=== PATIENT | female | born 1990 | race African-American/Black ===

== ENCOUNTER 2017-08-13 11:32 | Inpatient (IN) | payer OTHER ==
[2017-08-13 13:52] VITALS: BMI 29.5
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
[2017-08-13] MEDS ORDERED: MAG HYDROX/AL HYDROX/SIMETH 30 ML UNIT-DOSE CUP PO PRN (14:34)
[2017-08-13] MEDS ORDERED: MAGNESIUM CITRATE 300 ML BOTTLE PO PRN (14:34)
[2017-08-13] MEDS ORDERED: MENTHOL/PHENOL 1 EACH UD MM PRN (14:34)
[2017-08-13] MEDS ORDERED: P-EPHED 60MG/TRIPROLIDI 2.5MG TABLET PO PRN (14:34)
[2017-08-13] MEDS ORDERED: guaiFENesin/D-METHORPHAN HB 10 ML UNIT-DOSE CUPS PO PRN (14:34)
[2017-08-13] MEDS ORDERED: IBUPROFEN 400 MG TABLET (FP) PO PRN (14:34)
[2017-08-13] MEDS ORDERED: ACETAMINOPHEN 325 MG TABLET (FP) PO PRN (14:34)
[2017-08-13] MEDS ORDERED: LOPERAMIDE HCL 2 MG CAPSULE PO PRN (14:34)
[2017-08-13 16:50] LABS: HEMOGLOBIN 13.2 GM/dL (10.7-15.3); MCH 31.7 pg (25.7-33.7); MCHC 33.7 g/dl (32.0-36.0); MEAN CELL VOLUME 93.9 fl (80-96); MEAN PLT VOLUME 7.9 fl (7.5-11.1); PLATELET COUNT 365 K/MM3 (134-434); RBC 4.15 M/mm3 (3.60-5.2); RDW 13.5 % (11.6-15.6); WHITE BLOOD COUNT 8.7 K/mm3 (4.0-10.0)
[2017-08-13 17:47] LABS: ANION GAP 9 (8-16); CALCIUM 8.6 mg/dL (8.5-10.1); CHLORIDE 103 mmol/L (98-107); CO2 26 mmol/L (21-32); GLUCOSE,RANDOM 66 mg/dL (74-106); POTASSIUM 4.1 mmol/L (3.5-5.1); SODIUM 138 mmol/L (136-145)
[2017-08-13 18:43] LABS: ALK PHOS 50 U/L (45-117); BILIRUBIN,TOTAL 0.3 mg/dL (0.2-1.0); CREATININE 0.7 mg/dL (0.55-1.02); SGOT/AST 47 U/L (15-37); SGPT/ALT 44 U/L (12-78); TOT PROT 7.7 g/dl (6.4-8.2)
[2017-08-13 20:06] LABS: BLOOD UREA NITROGEN 10 mg/dL (7-18)
[2017-08-13] MEDS ORDERED: TUBERCULIN PPD 5 TU/0.1ML VIAL ID ONE (20:57)
[2017-08-13] MEDS: THIAMINE HCL 100 MG TABLET (FP) PO SCH (21:34)
[2017-08-13] MEDS: NICOTINE 14 MG/24 HOURS TOPICAL PATCH TD SCH (21:36)
[2017-08-13 23:23] LABS: URINE APPEARANCE TURBID; URINE BILIRUBIN NEGATIVE (NEGATIVE); URINE BLOOD 1+ (NEGATIVE); URINE COLOR AMBER; URINE GLUCOSE (UA) NEGATIVE (NEGATIVE); URINE KETONE NEGATIVE (NEGATIVE); URINE LEUK ESTERASE TRACE (NEGATIVE); URINE NITRITE POSITIVE (NEGATIVE); URINE PROTEIN NEGATIVE (NEGATIVE); URINE UROBILINOGEN NEGATIVE mg/dL (0.2-1.0)
[2017-08-13 23:34] LABS: EPI CELLS FEW /HPF (FEW); URINE BACTERIA FEW /hpf (NONE SEEN); URINE MUCUS MODERATE
--- NOTE | 2017-08-14 09:51 | EKG ---
Test Reason : Blood Pressure : / mmHG Vent. Rate : 067 BPM Atrial Rate : 067 BPM P-R Int : 166 ms QRS Dur : 082 ms QT Int : 384 ms P-R-T Axes : 066 074 051 degrees QTc Int : 405 ms NORMAL SINUS RHYTHM T WAVE ABNORMALITY, CONSIDER ANTERIOR ISCHEMIA ABNORMAL ECG WHEN COMPARED WITH ECG OF 22-JUN-2015 15:14, T WAVE INVERSION NOW EVIDENT IN ANTERIOR LEADS Confirmed by HUMBERTO ALANIS, PERNELL ([id number]) on 08/14/2017 9:51:06 AM Referred By: Confirmed By:PERNELL PAUL MD
[2017-08-14] MEDS: PRENATAL VITAMINS W/ FOLIC ACID TABLET (FP) PO SCH (10:19)
[2017-08-14] MEDS: NICOTINE 14 MG/24 HOURS TOPICAL PATCH TD SCH (10:19)
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
[2017-08-14] MEDS: ESCITALOPRAM OXALATE 10 MG TABLET (FP) PO SCH (15:04)
[2017-08-14] MEDS: THIAMINE HCL 100 MG TABLET (FP) PO SCH (21:22)
[2017-08-14] MEDS: QUEtiapine FUMARATE 25 MG TABLET (FP) PO SCH (21:23)
[2017-08-14] MEDS: DIVALPROEX SODIUM 500 MG TABLET E.C. PO SCH (21:24)
[2017-08-15] MEDS: DIVALPROEX SODIUM 500 MG TABLET E.C. PO SCH ×2 (10:02→21:29)
[2017-08-15] MEDS: NICOTINE 14 MG/24 HOURS TOPICAL PATCH TD SCH (10:02)
[2017-08-15] MEDS: ESCITALOPRAM OXALATE 10 MG TABLET (FP) PO SCH (10:02)
[2017-08-15] MEDS: PRENATAL VITAMINS W/ FOLIC ACID TABLET (FP) PO SCH (10:02)
[2017-08-15] MEDS: THIAMINE HCL 100 MG TABLET (FP) PO SCH (21:29)
[2017-08-15] MEDS: QUEtiapine FUMARATE 25 MG TABLET (FP) PO SCH (21:30)
[2017-08-16] MEDS: ESCITALOPRAM OXALATE 10 MG TABLET (FP) PO SCH (10:30)
[2017-08-16] MEDS: DIVALPROEX SODIUM 500 MG TABLET E.C. PO SCH ×2 (10:30→21:30)
[2017-08-16] MEDS: PRENATAL VITAMINS W/ FOLIC ACID TABLET (FP) PO SCH (10:30)
[2017-08-16] MEDS: NICOTINE 14 MG/24 HOURS TOPICAL PATCH TD SCH (10:30)
[2017-08-16] MEDS: hydrOXYzine PAMOATE 50 MG CAPSULE (FP) PO PRN (18:53)
[2017-08-16] MEDS: THIAMINE HCL 100 MG TABLET (FP) PO SCH (21:30)
[2017-08-16] MEDS: QUEtiapine FUMARATE 25 MG TABLET (FP) PO SCH (21:30)
[2017-08-17] MEDS: hydrOXYzine PAMOATE 50 MG CAPSULE (FP) PO PRN ×3 (06:20→19:58)
[2017-08-17] MEDS: PRENATAL VITAMINS W/ FOLIC ACID TABLET (FP) PO SCH (09:51)
[2017-08-17] MEDS: ESCITALOPRAM OXALATE 10 MG TABLET (FP) PO SCH (09:51)
[2017-08-17] MEDS: DIVALPROEX SODIUM 500 MG TABLET E.C. PO SCH ×2 (09:51→21:29)
[2017-08-17] MEDS: NICOTINE 14 MG/24 HOURS TOPICAL PATCH TD SCH (09:51)
[2017-08-17] MEDS: QUEtiapine FUMARATE 25 MG TABLET (FP) PO SCH (21:29)
[2017-08-17] MEDS: THIAMINE HCL 100 MG TABLET (FP) PO SCH (21:29)
[2017-08-18] MEDS: NICOTINE 14 MG/24 HOURS TOPICAL PATCH TD SCH (09:39)
[2017-08-18] MEDS: PRENATAL VITAMINS W/ FOLIC ACID TABLET (FP) PO SCH (09:39)
[2017-08-18] MEDS: ESCITALOPRAM OXALATE 10 MG TABLET (FP) PO SCH (09:39)
[2017-08-18] MEDS: DIVALPROEX SODIUM 500 MG TABLET E.C. PO SCH ×2 (09:39→21:29)
[2017-08-18] MEDS: hydrOXYzine PAMOATE 50 MG CAPSULE (FP) PO PRN ×2 (09:39→17:57)
[2017-08-18] MEDS: MAGNESIUM HYDROX 2400MG/30ML ORAL SUSPENSION 30 ML CUP PO PRN (19:20)
[2017-08-18] MEDS: THIAMINE HCL 100 MG TABLET (FP) PO SCH (21:29)
[2017-08-18] MEDS: QUEtiapine FUMARATE 25 MG TABLET (FP) PO SCH (21:29)
[2017-08-19] MEDS: hydrOXYzine PAMOATE 50 MG CAPSULE (FP) PO PRN ×2 (06:50→21:33)
[2017-08-19] MEDS: ESCITALOPRAM OXALATE 10 MG TABLET (FP) PO SCH (10:24)
[2017-08-19] MEDS: DIVALPROEX SODIUM 500 MG TABLET E.C. PO SCH ×2 (10:24→21:32)
[2017-08-19] MEDS: PRENATAL VITAMINS W/ FOLIC ACID TABLET (FP) PO SCH (10:24)
[2017-08-19] MEDS: NICOTINE 14 MG/24 HOURS TOPICAL PATCH TD SCH (10:24)
[2017-08-19] MEDS: MAGNESIUM HYDROX 2400MG/30ML ORAL SUSPENSION 30 ML CUP PO PRN (14:44)
[2017-08-19] MEDS: THIAMINE HCL 100 MG TABLET (FP) PO SCH (21:32)
[2017-08-19] MEDS: QUEtiapine FUMARATE 25 MG TABLET (FP) PO SCH (21:34)
[2017-08-20] MEDS: NICOTINE 14 MG/24 HOURS TOPICAL PATCH TD SCH (09:17)
[2017-08-20] MEDS: PRENATAL VITAMINS W/ FOLIC ACID TABLET (FP) PO SCH (09:17)
[2017-08-20] MEDS: DIVALPROEX SODIUM 500 MG TABLET E.C. PO SCH ×2 (09:17→21:42)
[2017-08-20] MEDS: ESCITALOPRAM OXALATE 10 MG TABLET (FP) PO SCH (09:17)
[2017-08-20] MEDS: THIAMINE HCL 100 MG TABLET (FP) PO SCH (21:42)
[2017-08-20] MEDS: QUEtiapine FUMARATE 25 MG TABLET (FP) PO SCH (21:43)
[2017-08-20] MEDS: hydrOXYzine PAMOATE 50 MG CAPSULE (FP) PO PRN (22:30)
[2017-08-21] MEDS: NICOTINE 14 MG/24 HOURS TOPICAL PATCH TD SCH (10:08)
[2017-08-21] MEDS: DIVALPROEX SODIUM 500 MG TABLET E.C. PO SCH ×2 (10:09→21:30)
[2017-08-21] MEDS: PRENATAL VITAMINS W/ FOLIC ACID TABLET (FP) PO SCH (10:09)
[2017-08-21] MEDS: ESCITALOPRAM OXALATE 10 MG TABLET (FP) PO SCH (10:09)
--- NOTE | 2017-08-21 16:10 | PN ---
Psychiatric Progress Note Vital Signs: Vital Signs Period Temp Pulse Resp BP Sys/Warner Pulse Ox Last 24 Hr 98.0 F 66 16-18 116/74 Date of Session: 08/21/17 Chief Complaint:: "I'm still having trouble sleeping." HPI: Pt. admitted to [facility] re[facility] for alcohol and marijuana dependence. ROS: Unremarkable Current Medications: Active Medications Generic Name Dose Route Start Last Admin Trade Name Freq PRN Reason Stop Dose Admin Acetaminophen 650 mg 08/13/17 14:34 Tylenol - PO Q4H PRN FEVER Al Hydroxide/Mg Hydroxide 30 ml 08/13/17 14:34 Mylanta Oral Suspension - PO Q6H PRN DYSPEPSIA Divalproex Sodium 500 mg 08/14/17 22:00 08/21/17 10:09 Depakote - PO 500 mg BID BERTHA Administration Escitalopram Oxalate 10 mg 08/14/17 14:15 08/21/17 10:09 Lexapro - PO 10 mg DAILY BERTHA Administration Eucalyptus/Menthol/Phenol/Sorbitol 1 each 08/13/17 14:34 Cepastat Lozenge - MM Q4H PRN SORE THROAT Guaifenesin 10 ml 08/13/17 14:34 Robitussin Dm - PO Q6H PRN COUGH Hydroxyzine Pamoate 50 mg 08/16/17 16:53 08/20/17 22:30 Vistaril - PO 50 mg Q6H PRN Administration ANXIETY Ibuprofen 400 mg 08/13/17 14:34 Motrin - PO Q6H PRN Pain level 4-6 Loperamide HCl 4 mg 08/13/17 14:34 Imodium - PO Q6H PRN DIARRHEA Magnesium Citrate 300 ml 08/13/17 14:34 08/19/17 18:56 Citroma - PO 300 ml Q48H PRN Administration CONSTIPATION Magnesium Hydroxide 30 ml 08/13/17 14:34 08/19/17 14:44 Milk Of Magnesia - PO 30 ml DAILY PRN Administration CONSTIPATION Nicotine 14 mg 08/13/17 14:45 08/21/17 10:08 Nicoderm Patch - TD 14 mg DAILY BERTHA Administration Multivit/Folic Acid/Iron 1 tab 08/14/17 10:00 08/21/17 10:09 Vitamins (Sjr) - PO 1 tab DAILY BERTHA Administration Pseudoephedrine/Triprolidine 1 combo 08/13/17 14:34 Actifed - PO TID PRN NASAL CONGESTION Quetiapine Fumarate 25 mg 08/14/17 22:00 08/20/17 21:43 Seroquel - PO 25 mg HS BERTHA Administration Thiamine HCl 100 mg 08/13/17 22:00 08/20/17 21:42 Vitamin B1 - PO 100 mg HS BERTAH Administration Medication(s) Change(s): Yes. Seroquel to be increased to 50mg qhs. Current Side Effect: No Lab tests ordered: No Lab tests reviewed: Yes Provider note:: [employer] spoke to patient concerning psychiatric follow up. Pt. c/ o difficulty sleeping. Seroquel 25mg to be increased to 50mg qhs. Pt. educated on the benefits and side effects of seroquel. Psychoeducation and sleep hygiene provided. Pt. satisified and receptive to feedback. Verbal consent given. Will continue to monitor patient. Total face to face time:: 25 Mental Status Exam - Mental Status Exam Alert and Oriented to: Time, Place, Person Cognitive Function: Good Patient Appearance: Well Groomed Mood: Hopeful Affect: Mood Congruent Patient Behavior: Appropriate, Cooperative Speech Pattern: Appropriate Voice Loudness: Normal Thought Process: Goal Oriented Thought Disorder: Not Present Hallucinations: Denies Suicidal Ideation: Denies Homicidal Ideation: Denies Insight/Judgement: Poor Sleep: Poorly Appetite: Fair Muscle strength/Tone: Normal Gait/Station: Normal Psychiatric Treatment Plan - Problem List (1) Bipolar II disorder Current Visit: Yes (2) Cannabis dependence, uncomplicated Current Visit: Yes (3) Nicotine dependence Current Visit: Yes Qualifiers: Nicotine product type: cigarettes Substance use status: in withdrawal Qualified Code(s): F17.213 - Nicotine dependence, cigarettes, with withdrawal (4) Alcohol dependence Current Visit: Yes
[2017-08-21] MEDS: THIAMINE HCL 100 MG TABLET (FP) PO SCH (21:30)
[2017-08-21] MEDS: hydrOXYzine PAMOATE 50 MG CAPSULE (FP) PO PRN (21:30)
[2017-08-21] MEDS: QUEtiapine FUMARATE 50 MG TABLET PO SCH (21:31)
[2017-08-22] MEDS: DIVALPROEX SODIUM 500 MG TABLET E.C. PO SCH ×2 (10:13→21:27)
[2017-08-22] MEDS: PRENATAL VITAMINS W/ FOLIC ACID TABLET (FP) PO SCH (10:14)
[2017-08-22] MEDS: NICOTINE 14 MG/24 HOURS TOPICAL PATCH TD SCH (10:14)
[2017-08-22] MEDS: ESCITALOPRAM OXALATE 10 MG TABLET (FP) PO SCH (10:14)
[2017-08-22] MEDS: hydrOXYzine PAMOATE 50 MG CAPSULE (FP) PO PRN ×2 (15:35→21:27)
[2017-08-22] MEDS: QUEtiapine FUMARATE 50 MG TABLET PO SCH (21:27)
[2017-08-22] MEDS: THIAMINE HCL 100 MG TABLET (FP) PO SCH (21:27)
[2017-08-23] MEDS: PRENATAL VITAMINS W/ FOLIC ACID TABLET (FP) PO SCH (09:58)
[2017-08-23] MEDS: ESCITALOPRAM OXALATE 10 MG TABLET (FP) PO SCH (09:58)
[2017-08-23] MEDS: DIVALPROEX SODIUM 500 MG TABLET E.C. PO SCH ×2 (09:58→21:44)
[2017-08-23] MEDS: NICOTINE 14 MG/24 HOURS TOPICAL PATCH TD SCH (09:59)
[2017-08-23] MEDS: THIAMINE HCL 100 MG TABLET (FP) PO SCH (21:44)
[2017-08-23] MEDS: QUEtiapine FUMARATE 50 MG TABLET PO SCH (21:44)
[2017-08-24] MEDS: ESCITALOPRAM OXALATE 10 MG TABLET (FP) PO SCH (10:08)
[2017-08-24] MEDS: DIVALPROEX SODIUM 500 MG TABLET E.C. PO SCH ×2 (10:08→21:34)
[2017-08-24] MEDS: PRENATAL VITAMINS W/ FOLIC ACID TABLET (FP) PO SCH (10:08)
[2017-08-24] MEDS: NICOTINE 14 MG/24 HOURS TOPICAL PATCH TD SCH (10:08)
[2017-08-24 16:25] LABS: URINE APPEARANCE SLCLOUDY; URINE BILIRUBIN NEGATIVE (NEGATIVE); URINE BLOOD NEGATIVE (NEGATIVE); URINE COLOR YELLOW; URINE GLUCOSE (UA) NEGATIVE (NEGATIVE); URINE KETONE TRACE (NEGATIVE); URINE LEUK ESTERASE NEGATIVE (NEGATIVE); URINE NITRITE NEGATIVE (NEGATIVE); URINE PROTEIN NEGATIVE (NEGATIVE); URINE UROBILINOGEN NEGATIVE mg/dL (0.2-1.0)
[2017-08-24] MEDS: THIAMINE HCL 100 MG TABLET (FP) PO SCH (21:34)
[2017-08-24] MEDS: QUEtiapine FUMARATE 50 MG TABLET PO SCH (21:34)
[2017-08-24] MEDS: hydrOXYzine PAMOATE 50 MG CAPSULE (FP) PO PRN (21:34)
[2017-08-25] MEDS: hydrOXYzine PAMOATE 50 MG CAPSULE (FP) PO PRN ×2 (06:44→18:26)
[2017-08-25] MEDS: PRENATAL VITAMINS W/ FOLIC ACID TABLET (FP) PO SCH (10:10)
[2017-08-25] MEDS: DIVALPROEX SODIUM 500 MG TABLET E.C. PO SCH ×2 (10:10→21:33)
[2017-08-25] MEDS: NICOTINE 14 MG/24 HOURS TOPICAL PATCH TD SCH (10:10)
[2017-08-25] MEDS: ESCITALOPRAM OXALATE 10 MG TABLET (FP) PO SCH (10:10)
[2017-08-25] MEDS: QUEtiapine FUMARATE 50 MG TABLET PO SCH (21:33)
[2017-08-25] MEDS: THIAMINE HCL 100 MG TABLET (FP) PO SCH (21:33)
[2017-08-26] MEDS: DIVALPROEX SODIUM 500 MG TABLET E.C. PO SCH ×2 (10:02→21:33)
[2017-08-26] MEDS: NICOTINE 14 MG/24 HOURS TOPICAL PATCH TD SCH (10:02)
[2017-08-26] MEDS: PRENATAL VITAMINS W/ FOLIC ACID TABLET (FP) PO SCH (10:02)
[2017-08-26] MEDS: ESCITALOPRAM OXALATE 10 MG TABLET (FP) PO SCH (10:02)
[2017-08-26] MEDS: THIAMINE HCL 100 MG TABLET (FP) PO SCH (21:33)
[2017-08-26] MEDS: QUEtiapine FUMARATE 50 MG TABLET PO SCH (21:34)
[2017-08-26] MEDS: hydrOXYzine PAMOATE 50 MG CAPSULE (FP) PO PRN (23:03)
[2017-08-27 06:59] VITALS: BP 102/64; PULSE 67; TEMP 98.3
[2017-08-27] MEDS: PRENATAL VITAMINS W/ FOLIC ACID TABLET (FP) PO SCH (09:27)
[2017-08-27] MEDS: DIVALPROEX SODIUM 500 MG TABLET E.C. PO SCH (09:27)
[2017-08-27] MEDS: NICOTINE 14 MG/24 HOURS TOPICAL PATCH TD SCH (09:28)
[2017-08-27] MEDS: ESCITALOPRAM OXALATE 10 MG TABLET (FP) PO SCH (09:28)
--- NOTE | 2017-08-27 11:00 | PN ---
[facility] Progress Note Note: patient completed treatment today and met her goals, she addressed alcohol, nicotine dependence comorbid Bipolar II disorder, anemia and UTI medically managed, patient's scripts for depakote, lexapro and seroquel provided by . Patient was stable for discharge.
== END 2017-08-27 09:42 | disposition home or self-care (01) | DRG 772 ==
LOC: YASAS 11:32 → Y3E 17:44
PROVIDERS: ADMIT Psychiatry & Neurology Psychiatry; ATTEND Psychiatry & Neurology Psychiatry
PROC: HZ42ZZZ Group Counseling for Substance Abuse Treatment, Cognitive-Behavioral (ICD-10-PCS; principal; 2017-08-13)
DX: F10.20 Alcohol dependence, uncomplicated (principal); F12.20 Cannabis dependence, uncomplicated; F17.213 Nicotine dependence, cigarettes, with withdrawal; F31.81 Bipolar II disorder; F41.8 Other specified anxiety disorders; D64.9 Anemia, unspecified; N30.00 Acute cystitis without hematuria; Z87.42 Personal history of other diseases of the female genital tract; Z91.5 Personal history of self-harm
CPT/HCPCS: 36415; 80053; 80164; 81003; 81015; 85027; 85660; 86593; 87389; 93005; 93010

== ENCOUNTER 2020-06-10 14:32 | Emergency (ER) | payer OTHER ==
[2020-06-10 14:37] VITALS: TEMP 97.3; BMI 29.8
[2020-06-10 15:38] LABS: EPI CELLS 14 /uL (0-25.1); HYALINE CASTS 2 /uL (0-3.1); PH,URINE 6.5 (5.0-8.0); URINE APPEARANCE CLOUDY; URINE BACTERIA 73 /uL (0-1359); URINE BILIRUBIN NEGATIVE (NEGATIVE); URINE COLOR RED; URINE GLUCOSE (UA) NEGATIVE (NEGATIVE); URINE KETONE TRACE (NEGATIVE); URINE LEUK ESTERASE 1+ (NEGATIVE); URINE NITRITE NEGATIVE (NEGATIVE); URINE PROTEIN 1+ (NEGATIVE); URINE RBC 9435 /uL (0-23.9); URINE WBC 27 /uL (0-25.8)
[2020-06-10 15:39] LABS: HCG,QUALITATIVE URINE Negative
[2020-06-10 18:56] VITALS: BP 122/65; PULSE 68
== END 2020-06-10 18:56 | disposition home or self-care (01) ==
LOC: JER 14:32
DX: N93.9 Abnormal uterine and vaginal bleeding, unspecified (principal)
CPT/HCPCS: 76830-TC; 81003; 84703; 87086; 87186; 99284-25

== ENCOUNTER 2020-08-15 13:43 | Emergency (ER) | payer OTHER ==
[2020-08-15 13:58] VITALS: BMI 30.9
[2020-08-15 16:28] LABS: PH,URINE 6.5 (5.0-8.0); URINE APPEARANCE CLEAR; URINE BILIRUBIN NEGATIVE (NEGATIVE); URINE COLOR YELLOW; URINE GLUCOSE (UA) NEGATIVE (NEGATIVE); URINE KETONE NEGATIVE (NEGATIVE); URINE LEUK ESTERASE NEGATIVE (NEGATIVE); URINE NITRITE NEGATIVE (NEGATIVE); URINE PROTEIN NEGATIVE (NEGATIVE); URINE UROBILINOGEN 0.2 mg/dL (0.2-1.0)
[2020-08-15 19:15] VITALS: BP 108/71; PULSE 62; TEMP 98.4
== END 2020-08-15 19:16 | disposition home or self-care (01) ==
LOC: JER 13:43
DX: O26.899 Other specified pregnancy related conditions, unspecified trimester (principal); R10.9 Unspecified abdominal pain
CPT/HCPCS: 36415; 76817-TC; 81003; 84702; 87086; 99284-25

== ENCOUNTER 2021-01-27 16:52 | Emergency (ER) | payer OTHER ==
[2021-01-27 17:10] VITALS: BMI 31.7
[2021-01-27 20:26] LABS: BASO % 0.2 % (0-2.0); EOS % 1.9 % (0-4.5); HEMATOCRIT 31.3 % (32.4-45.2); HEMOGLOBIN 10.5 GM/dL (10.7-15.3); MCH 29.9 pg (25.7-33.7); MCHC 33.5 g/dl (32.0-36.0); MEAN CELL VOLUME 89.2 fl (80-96); MEAN PLT VOLUME 7.3 fl (7.5-11.1); MONO % 6.3 % (3.8-10.2); NEUT % 75.6 % (42.8-82.8); PLATELET COUNT 414 10^3/uL (134-434); RDW 13.2 % (11.6-15.6); WHITE BLOOD COUNT 11.8 K/mm3 (4.0-10.0)
[2021-01-27 20:37] LABS: CHLORIDE 107 mmol/L (98-107); SODIUM 137 mmol/L (136-145)
[2021-01-27 20:39] LABS: ALBUMIN 2.7 g/dl (3.4-5.0); CALCIUM 8.4 mg/dL (8.5-10.1)
[2021-01-27 20:40] LABS: ANION GAP 7 MMOL/L (8-16); BLOOD UREA NITROGEN 5.6 mg/dL (7-18); CO2 23 mmol/L (21-32); GLUCOSE,RANDOM 67 mg/dL (74-106); INR 0.96 (0.83-1.09); MAGNESIUM 1.8 mg/dL (1.8-2.4); PROTHROMBIN TIME (PATIENT) 11.6 SEC (9.7-13.0)
[2021-01-27 20:43] LABS: ACTIVATED PTT 27.5 SECONDS (25.2-36.5); CREATININE 0.6 mg/dL (0.55-1.3); SGOT/AST 37 U/L (15-37); SGPT/ALT 21 U/L (13-61)
[2021-01-27 20:44] LABS: BILIRUBIN,TOTAL 0.2 mg/dL (0.2-1); TOT PROT 6.8 g/dl (6.4-8.2)
[2021-01-27 20:45] LABS: ALK PHOS 74 U/L (45-117)
[2021-01-27 20:52] LABS: EPI CELLS >36 /uL (0-25.1); HYALINE CASTS 6 /uL (0-3.1); PH,URINE 6.5 (5.0-8.0); URINE APPEARANCE CLOUDY; URINE BACTERIA 3339 /uL (0-1359); URINE BILIRUBIN NEGATIVE (NEGATIVE); URINE COLOR YELLOW; URINE GLUCOSE (UA) NEGATIVE (NEGATIVE); URINE KETONE TRACE (NEGATIVE); URINE LEUK ESTERASE 2+ (NEGATIVE); URINE NITRITE NEGATIVE (NEGATIVE); URINE PROTEIN TRACE (NEGATIVE); URINE RBC 12 /uL (0-23.9); URINE WBC 164 /uL (0-25.8)
[2021-01-27 22:53] VITALS: BP 102/54; PULSE 70; TEMP 98.4
== END 2021-01-27 23:22 | disposition home or self-care (01) ==
LOC: JER 16:52
DX: O99.513 Diseases of the respiratory system complicating pregnancy, third trimester (principal); R06.02 Shortness of breath; O23.43 Unspecified infection of urinary tract in pregnancy, third trimester; Z3A.28 28 weeks gestation of pregnancy
CPT/HCPCS: 36415; 71046-TC-FY; 80053; 81003; 82550; 82553; 83735; 84484; 85025; 85379; 85610; 85730; 93005; 93010; 93970-TC; 99285-25; C9803; U0003; U0005

== ENCOUNTER 2021-04-10 04:25 | Inpatient (IN) | payer OTHER ==
[2021-04-10] MEDS: ELECTROLYTE-148 SOLN 1,000 ML IV SCH ×2 (05:00→08:08)
[2021-04-10] MEDS ORDERED: CITRIC ACID/SODIUM CITRATE 30 ML UNIT-DOSE CUP PO ONE (06:19)
[2021-04-10 06:33] VITALS: BMI 35.0
[2021-04-10 06:50] LABS: BASO % 0.2 % (0-2.0); EOS % 2.1 % (0-4.5); HEMATOCRIT 28.2 % (32.4-45.2); HEMOGLOBIN 9.6 GM/dL (10.7-15.3); LYMPH % 19.7 % (8-40); MCH 29.8 pg (25.7-33.7); MCHC 34.1 g/dl (32.0-36.0); MEAN CELL VOLUME 87.4 fl (80-96); MEAN PLT VOLUME 7.3 fl (7.5-11.1); MONO % 7.1 % (3.8-10.2); NEUT % 70.9 % (42.8-82.8); PLATELET COUNT 410 10^3/uL (134-434); RBC 3.22 M/mm3 (3.60-5.2); RDW 14.6 % (11.6-15.6); WHITE BLOOD COUNT 9.9 K/mm3 (4.0-10.0)
[2021-04-10 06:58] LABS: INR 0.88 (0.83-1.09); PROTHROMBIN TIME (PATIENT) 10.8 SEC (9.7-13.0)
[2021-04-10 07:01] LABS: ACTIVATED PTT 30.6 SECONDS (25.2-36.5)
[2021-04-10 07:04] LABS: CALCIUM 8.3 mg/dL (8.5-10.1)
[2021-04-10 07:05] LABS: BLOOD UREA NITROGEN 4.2 mg/dL (7-18)
[2021-04-10 07:08] LABS: CREATININE 0.4 mg/dL (0.55-1.3)
[2021-04-10] MEDS ORDERED: BUTORPHANOL TARTRATE 2 MG/ML VIAL ONE (07:19)
[2021-04-10] MEDS ORDERED: PROMETHAZINE HCL 25 MG/1 ML VIAL ONE (07:19)
[2021-04-10] MEDS ORDERED: BUTORPHANOL TARTRATE 2 MG/ML VIAL IVPB ONE (08:00)
[2021-04-10] MEDS ORDERED: PROMETHAZINE HCL 25 MG/1 ML VIAL IVPB ONE (08:00)
[2021-04-10] MEDS ORDERED: OXYTOCIN 20 UNITS in 0.9% NS 20 UNIT/1,000 ML INFUS.BAG IV ONE (14:36)
[2021-04-10] MEDS ORDERED: ONDANSETRON 4 MG/2 ML VIAL ONE (14:46)
[2021-04-10] MEDS ORDERED: IBUPROFEN 800 MG/8 ML IJ IVPB PRN (15:38)
[2021-04-10] MEDS ORDERED: ACETAMINOPHEN 325 MG TABLET (FP) PO PRN (15:38)
[2021-04-10] MEDS ORDERED: OXYTOCIN 20 UNITS in 0.9% NS 20 UNIT/1,000 ML INFUS.BAG IV SCH (15:45)
[2021-04-11 08:05] LABS: BASO % 0.2 % (0-2.0); EOS % 1.7 % (0-4.5); HEMATOCRIT 29.3 % (32.4-45.2); HEMOGLOBIN 9.8 GM/dL (10.7-15.3); LYMPH % 10.3 % (8-40); MCH 29.4 pg (25.7-33.7); MCHC 33.4 g/dl (32.0-36.0); MEAN PLT VOLUME 7.4 fl (7.5-11.1); MONO % 6.3 % (3.8-10.2); NEUT % 81.5 % (42.8-82.8); PLATELET COUNT 391 10^3/uL (134-434); RBC 3.33 M/mm3 (3.60-5.2); RDW 14.5 % (11.6-15.6); WHITE BLOOD COUNT 11.2 K/mm3 (4.0-10.0)
[2021-04-11] MEDS: oxyCODONE HCL 5 MG TABLET PO PRN ×2 (10:00→21:25)
[2021-04-11] MEDS: SIMETHICONE 80 MG TAB.CHEW (FP) PO PRN ×3 (10:01→21:24)
[2021-04-11] MEDS: IBUPROFEN 600 MG TABLET (FP) PO PRN ×2 (14:27→21:24)
[2021-04-11] MEDS ORDERED: BISACODYL 10 MG SUPP.RECT RC PRN (15:38)
[2021-04-12] MEDS: IBUPROFEN 600 MG TABLET (FP) PO PRN ×2 (06:23→15:46)
[2021-04-12] MEDS: SIMETHICONE 80 MG TAB.CHEW (FP) PO PRN ×2 (06:23→15:46)
[2021-04-13] MEDS: IBUPROFEN 600 MG TABLET (FP) PO PRN (00:48)
[2021-04-13] MEDS: oxyCODONE HCL 5 MG TABLET PO PRN ×2 (00:49→09:56)
[2021-04-13 09:12] LABS: BASO % 0.1 % (0-2.0); EOS % 2.5 % (0-4.5); HEMATOCRIT 29.5 % (32.4-45.2); HEMOGLOBIN 9.9 GM/dL (10.7-15.3); LYMPH % 24.3 % (8-40); MCH 29.5 pg (25.7-33.7); MCHC 33.8 g/dl (32.0-36.0); MEAN CELL VOLUME 87.5 fl (80-96); MEAN PLT VOLUME 7.4 fl (7.5-11.1); MONO % 7.1 % (3.8-10.2); PLATELET COUNT 427 10^3/uL (134-434); RBC 3.37 M/mm3 (3.60-5.2); WHITE BLOOD COUNT 9.5 K/mm3 (4.0-10.0)
[2021-04-13] MEDS: SIMETHICONE 80 MG TAB.CHEW (FP) PO PRN (09:56)
[2021-04-13 10:56] VITALS: BP 112/69; PULSE 76; TEMP 98.3
== END 2021-04-13 13:40 | disposition home or self-care (01) | DRG 540 ==
LOC: JDEL 04:25 → JLDR 05:40 → J3W 17:20
PROVIDERS: ADMIT Obstetrics & Gynecology; ATTEND Obstetrics & Gynecology
PROC: 10D00Z1 Extraction of Products of Conception, Low, Open Approach (ICD-10-PCS; principal; 2021-04-10)
DX: O34.211 Maternal care for low transverse scar from previous cesarean delivery (principal); N85.8 Other specified noninflammatory disorders of uterus; Z3A.39 39 weeks gestation of pregnancy; O98.52 Other viral diseases complicating childbirth; U07.1 COVID-19; Z37.0 Single live birth
CPT/HCPCS: 36415; 80048; 85025; 85610; 85730; 86780; 86850; 86900; 86901; C9803; U0003; U0005

== ENCOUNTER 2021-11-25 13:42 | Emergency (ER) | payer OTHER ==
[2021-11-25 13:52] VITALS: TEMP 98.3; BMI 30.9
[2021-11-25] MEDS ORDERED: ALBUTEROL SO4 2.5/IPRATROPIUM 0.5 INH SOL 3 ML VIAL.NEB. NEB ONE (14:45)
[2021-11-25] MEDS ORDERED: ACETAMINOPHEN 500 MG TABLET (FP) PO ONE (14:56)
[2021-11-25] MEDS ORDERED: ACETAMINOPHEN 1000 MG/100 ML BAG IVPB ONE (14:56)
[2021-11-25] MEDS ORDERED: ACETAMINOPHEN 325 MG TABLET (FP) ONE (15:11)
[2021-11-25 15:27] LABS: BASO % 0.2 % (0-2.0); EOS % 2.1 % (0-4.5); HEMATOCRIT 35.9 % (32.4-45.2); HEMOGLOBIN 11.8 GM/dL (10.7-15.3); LYMPH % 21.9 % (8-40); MCHC 32.8 g/dl (32.0-36.0); MEAN CELL VOLUME 91.5 fl (80-96); MEAN PLT VOLUME 7.7 fl (7.5-11.1); MONO % 5.4 % (3.8-10.2); NEUT % 70.4 % (42.8-82.8); PLATELET COUNT 404 10^3/uL (134-434); RBC 3.92 M/mm3 (3.60-5.2); WHITE BLOOD COUNT 13.4 K/mm3 (4.0-10.0)
[2021-11-25 15:45] LABS: ALBUMIN 3.5 g/dl (3.4-5.0); BLOOD UREA NITROGEN 7.9 mg/dL (7-18); CALCIUM 8.9 mg/dL (8.5-10.1)
[2021-11-25 15:48] LABS: CREATININE 0.8 mg/dL (0.55-1.3)
[2021-11-25 15:50] LABS: BILIRUBIN,TOTAL 0.1 mg/dL (0.2-1); TOT PROT 7.2 g/dl (6.4-8.2)
[2021-11-25 16:35] LABS: PH,URINE 6.5 (5.0-8.0); URINE APPEARANCE CLOUDY; URINE BILIRUBIN NEGATIVE (NEGATIVE); URINE COLOR YELLOW; URINE GLUCOSE (UA) NEGATIVE (NEGATIVE); URINE KETONE TRACE (NEGATIVE); URINE LEUK ESTERASE NEGATIVE (NEGATIVE); URINE NITRITE NEGATIVE (NEGATIVE); URINE PROTEIN NEGATIVE (NEGATIVE); URINE UROBILINOGEN 0.2 mg/dL (0.2-1.0)
[2021-11-25] MEDS ORDERED: ALBUTEROL SO4 0.083% IH SOL 2.5 MG/3 ML VIAL.NEB. NEB ONE ×2 (16:59→17:47)
[2021-11-25 18:37] VITALS: BP 122/74; PULSE 78
== END 2021-11-25 18:38 | disposition left against medical advice (07) ==
LOC: JER 13:42
PROC: 3E0F7GC Introduction of Other Therapeutic Substance into Respiratory Tract, Via Natural or Artificial Opening (ICD-10-PCS; principal; 2021-11-25)
PROC: 3E033NZ Introduction of Analgesics, Hypnotics, Sedatives into Peripheral Vein, Percutaneous Approach (ICD-10-PCS; 2021-11-25)
DX: R50.9 Fever, unspecified (principal); R94.31 Abnormal electrocardiogram [ECG] [EKG]
CPT/HCPCS: 0241U-QW; 36415; 71275-TC; 80053; 81003; 84484; 84703; 85025; 85379; 87086; 93005; 93010; 99285-25; Q9967

== ENCOUNTER 2023-12-03 21:20 | Emergency (ER) | payer OTHER ==
[2023-12-03 21:36] VITALS: TEMP 98; BMI 32.5
[2023-12-03] MEDS: LACTATED RINGERS SOLUTION 1000 ML INFUS.BAG IV ONE (23:28)
[2023-12-03 23:34] LABS: URINE APPEARANCE CLEAR; URINE BILIRUBIN NEGATIVE (NEGATIVE); URINE COLOR YELLOW; URINE GLUCOSE (UA) NEGATIVE (NEGATIVE); URINE KETONE 4+ (NEGATIVE); URINE LEUK ESTERASE NEGATIVE (NEGATIVE); URINE NITRITE NEGATIVE (NEGATIVE); URINE PROTEIN TRACE (NEGATIVE)
[2023-12-03 23:36] LABS: BASO % 0.3 % (0-2.0); EOS % 0.6 % (0-4.5); HEMATOCRIT 39.7 % (32.4-45.2); HEMOGLOBIN 13.7 GM/dL (10.7-15.3); MCH 31.6 pg (25.7-33.7); MCHC 34.5 g/dl (32.0-36.0); MEAN CELL VOLUME 91.7 fl (80-96); MEAN PLT VOLUME 7.3 fl (7.5-11.1); MONO % 3.8 % (3.8-10.2); NEUT % 79.3 % (42.8-82.8); PLATELET COUNT 416 10^3/uL (134-434); RBC 4.33 M/mm3 (3.60-5.2); RDW 13.5 % (11.6-15.6); WHITE BLOOD COUNT 13.2 K/mm3 (4.0-10.0)
[2023-12-03] MEDS ORDERED: ONDANSETRON 4 MG/2 ML VIAL ONE (23:48)
[2023-12-03] MEDS: ONDANSETRON 4 MG/2 ML VIAL IVPUSH ONE (23:53)
[2023-12-03 23:55] LABS: POTASSIUM 3.5 mmol/L (3.5-5.1)
[2023-12-03 23:57] LABS: CALCIUM 9.2 mg/dL (8.5-10.1)
[2023-12-03 23:59] LABS: CREATININE 0.6 mg/dL (0.55-1.3)
[2023-12-04 00:02] LABS: BILIRUBIN,TOTAL 0.3 mg/dL (0.2-1); TOT PROT 8.2 g/dl (6.4-8.2)
[2023-12-04 00:05] LABS: N-TERMINAL BNP 18.4 pg/ml (5-125)
[2023-12-04 00:30] VITALS: BP 106/63; PULSE 54; RESP 19
== END 2023-12-04 01:23 | disposition home or self-care (01) ==
LOC: JER 21:20
PROC: 3E033GC Introduction of Other Therapeutic Substance into Peripheral Vein, Percutaneous Approach (ICD-10-PCS; principal; 2023-12-03)
DX: O26.891 Other specified pregnancy related conditions, first trimester (principal); R11.0 Nausea; R42 Dizziness and giddiness; R53.1 Weakness; Z3A.14 14 weeks gestation of pregnancy; Z20.822 Contact with and (suspected) exposure to COVID-19
CPT/HCPCS: 0241U-QW; 36415; 80053; 81003; 83735; 83880; 84439; 84443; 85025; 87086; 93005; 93010; 99284-25

== ENCOUNTER 2024-04-22 20:26 | Emergency (ER) | payer OTHER ==
[2024-04-22 20:33] VITALS: BMI 29.7
[2024-04-22] MEDS ORDERED: ACETAMINOPHEN INJECTION 100 ML ONE (22:24)
[2024-04-22 22:25] LABS: BASO % 0.2 % (0-2.0); EOS % 3.5 % (0-4.5); HEMATOCRIT 32.7 % (32.4-45.2); HEMOGLOBIN 11.2 GM/dL (10.7-15.3); LYMPH % 20.2 % (8-40); MCH 30.9 pg (25.7-33.7); MCHC 34.3 g/dl (32.0-36.0); MEAN CELL VOLUME 90.1 fl (80-96); MEAN PLT VOLUME 6.5 fl (7.5-11.1); MONO % 6.7 % (3.8-10.2); NEUT % 69.4 % (42.8-82.8); PH,URINE 6.5 (5.0-8.0); PLATELET COUNT 373 10^3/uL (134-434); RBC 3.63 M/mm3 (3.60-5.2); RDW 13.1 % (11.6-15.6); URINE APPEARANCE CLEAR; URINE BILIRUBIN NEGATIVE (NEGATIVE); URINE COLOR YELLOW; URINE GLUCOSE (UA) NEGATIVE (NEGATIVE); URINE KETONE NEGATIVE (NEGATIVE); URINE LEUK ESTERASE NEGATIVE (NEGATIVE); URINE NITRITE NEGATIVE (NEGATIVE); URINE PROTEIN NEGATIVE (NEGATIVE); URINE UROBILINOGEN 0.2 mg/dL (0.2-1.0); WHITE BLOOD COUNT 9.9 K/mm3 (4.0-10.0)
[2024-04-22 22:26] LABS: RETICULOCYTES 1.84 % (0.5-1.5)
[2024-04-22] MEDS: ACETAMINOPHEN 1000 MG/100 ML BAG IVPB ONE (22:31)
[2024-04-22] MEDS: LACTATED RINGERS SOLUTION 1000 ML INFUS.BAG IV ONE (22:31)
[2024-04-22 22:43] LABS: POTASSIUM 3.6 mmol/L (3.5-5.1)
[2024-04-22 22:45] LABS: CALCIUM 8.3 mg/dL (8.5-10.1)
[2024-04-22 22:46] LABS: ALBUMIN 2.5 g/dl (3.4-5.0); BLOOD UREA NITROGEN 5.7 mg/dL (7-18)
[2024-04-22 22:48] LABS: URIC ACID 2.2 mg/dL (2.6-7.2)
[2024-04-22 22:49] LABS: CREATININE 0.4 mg/dL (0.55-1.3)
[2024-04-22 22:50] LABS: BILIRUBIN,TOTAL 0.1 mg/dL (0.2-1); TOT PROT 6.4 g/dl (6.4-8.2)
[2024-04-22] MEDS ORDERED: MAGNESIUM SULFATE IN WATER 2 GM/50 ML IVPB IVPB ONE (23:03)
[2024-04-22] MEDS: MAGNESIUM SULFATE IN WATER 2 GM/50 ML IVPB IVPB ONE (23:10)
[2024-04-23] MEDS: LACTATED RINGERS SOLUTION 1,000 ML IV ONE (00:40)
[2024-04-23 01:52] VITALS: RESP 17; TEMP 97.6
[2024-04-23 03:11] VITALS: BP 112/58; PULSE 67
== END 2024-04-23 03:00 | disposition home or self-care (01) ==
LOC: JER 20:26
PROC: 3E033GC Introduction of Other Therapeutic Substance into Peripheral Vein, Percutaneous Approach (ICD-10-PCS; principal; 2024-04-22)
PROC: 3E0337Z Introduction of Electrolytic and Water Balance Substance into Peripheral Vein, Percutaneous Approach (ICD-10-PCS; 2024-04-22)
DX: O99.891 Other specified diseases and conditions complicating pregnancy (principal); R51.9 Headache, unspecified; O26.893 Other specified pregnancy related conditions, third trimester; R42 Dizziness and giddiness; Z3A.34 34 weeks gestation of pregnancy
CPT/HCPCS: 36415; 80053; 81003; 82570; 82977; 83010; 83735; 84156; 84550; 85025; 85032; 85045; 99284-25

== ENCOUNTER 2024-05-25 08:00 | Inpatient (IN) | payer OTHER ==
[2024-05-25] MEDS: ELECTROLYTE-148 SOLN 1,000 ML IV SCH (09:00)
[2024-05-25 10:38] VITALS: BMI 31.4
[2024-05-25] MEDS ORDERED: morphine SULFATE (PF) 1 MG/2 ML SYRINGE ONE (11:35)
[2024-05-25] MEDS ORDERED: FENTANYL CITRATE/PF 50 MCG/ML VIAL ONE (11:35)
[2024-05-25] MEDS ORDERED: ceFAZolin SODIUM 1 GM VIAL ONE ×2 (11:36)
[2024-05-25] MEDS ORDERED: ONDANSETRON 4 MG/2 ML VIAL ONE ×2 (11:36)
[2024-05-25] MEDS ORDERED: DEXAMETHASONE SOD PHOSPHATE 4 MG/1 ML VIAL ONE (12:02)
[2024-05-25] MEDS ORDERED: OXYTOCIN 10 UNITS/ML VIAL ONE ×3 (12:02)
[2024-05-25] MEDS ORDERED: KETOROLAC TROMETHAMINE 30 MG/1 ML VIAL ONE (12:02)
[2024-05-25] MEDS: OXYTOCIN 20 UNITS in 0.9% NS 20 UNIT/1,000 ML INFUS.BAG IV SCH (12:45)
[2024-05-25 13:37] LABS: CORD HCO3 24.2 mmHg (20-29); CORD PCO2 54.9 mmHg (30-78); CORD pH 7.262 (7.14-7.44)
[2024-05-25 13:42] LABS: CORD HCO3 24.6 mmHg (20-29); CORD PCO2 66.4 mmHg (30-78); CORD pH 7.187 (7.14-7.44)
[2024-05-25] MEDS: IBUPROFEN 800 MG/8 ML IJ IVPB PRN (16:14)
[2024-05-25 17:25] LABS: HIV INTERPRETATION NEGATIVE (NEGATIVE)
[2024-05-26 08:11] LABS: BASO % 0.1 % (0-2.0); HEMATOCRIT 26.8 % (32.4-45.2); HEMOGLOBIN 9.1 GM/dL (10.7-15.3); LYMPH % 14.9 % (8-40); MCH 30.3 pg (25.7-33.7); MEAN CELL VOLUME 88.9 fl (80-96); MONO % 8.6 % (3.8-10.2); NEUT % 75.4 % (42.8-82.8); PLATELET COUNT 293 10^3/uL (134-434); RBC 3.01 M/mm3 (3.60-5.2); RDW 13.8 % (11.6-15.6); WHITE BLOOD COUNT 11.1 K/mm3 (4.0-10.0)
[2024-05-26] MEDS: SIMETHICONE 80 MG TAB.CHEW (FP) PO PRN (10:11)
[2024-05-26] MEDS: IBUPROFEN 600 MG TABLET (FP) PO PRN (10:11)
[2024-05-26] MEDS: FLU VACCINE (FLULAVAL) PF 45 MCG/0.5 ML SYRINGE 2024-2025 IM ONE (11:49)
[2024-05-26] MEDS: DIPHTH,PERTUSS(ACELL),TET 0.5 ML DISP.SYRIN IM ONE (11:50)
[2024-05-26] MEDS: oxyCODONE HCL 5 MG TABLET PO PRN (13:00)
[2024-05-26] MEDS ORDERED: BISACODYL 10 MG SUPP.RECT RC PRN (13:17)
[2024-05-27] MEDS: FERROUS SO4 325 MG TABLET (FP) PO ONE (08:33)
[2024-05-27] MEDS: ACETAMINOPHEN 325 MG TABLET (FP) PO PRN (13:14)
[2024-05-27 23:00] VITALS: TEMP 98
[2024-05-28 08:13] LABS: BASO % 0.2 % (0-2.0); HEMATOCRIT 31.6 % (32.4-45.2); HEMOGLOBIN 10.3 GM/dL (10.7-15.3); LYMPH % 18.1 % (8-40); MCH 29.6 pg (25.7-33.7); MCHC 32.6 g/dl (32.0-36.0); MEAN CELL VOLUME 90.8 fl (80-96); MEAN PLT VOLUME 6.9 fl (7.5-11.1); MONO % 6.8 % (3.8-10.2); NEUT % 71.9 % (42.8-82.8); PLATELET COUNT 356 10^3/uL (134-434); RBC 3.48 M/mm3 (3.60-5.2); RDW 13.7 % (11.6-15.6); WHITE BLOOD COUNT 9.7 K/mm3 (4.0-10.0)
[2024-05-28 14:01] VITALS: BP 120/71; PULSE 67; RESP 17
== END 2024-05-28 14:00 | disposition home or self-care (01) | DRG 540 ==
LOC: JLDR 08:00 → J3W 15:05
PROVIDERS: ADMIT Student in an Organized Health Care Education/Training Program; ATTEND Student in an Organized Health Care Education/Training Program
PROC: 10D00Z1 Extraction of Products of Conception, Low, Open Approach (ICD-10-PCS; principal; 2024-05-25)
DX: O36.5930 Maternal care for other known or suspected poor fetal growth, third trimester, not applicable or unspecified (principal); O34.211 Maternal care for low transverse scar from previous cesarean delivery; Z3A.38 38 weeks gestation of pregnancy; Z37.0 Single live birth
CPT/HCPCS: 36415; 36600; 59409; 80053; 81003; 82803; 85025; 85610; 86780; 86850; 86900; 86901; 87389; 88307-TC; 90656; 90715; 94010; G0008